=== PATIENT | female | born 1995 | race Hispanic/Latino ===

== ENCOUNTER → 2022-09-22 07:54 | Outpatient (CLI) | payer OTHER, SELFPAY ==
--- NOTE | 2022-09-22 07:57 | DI.ECHO.S_ITS ---
[facility] +---------+ : : [address] : : : : [id number] : : : : Phone: [phone]---------+ Echocardiogram Report + + :Name: STACY MELENDEZ Study Date: 09/22/2022 Height: 60 in : :[facility] ReadingLocation: Weight: 137 lb : : Gender: Female BSA: 1.6 m2 : :: 1995 Age: 26 yrs BP: 120/82 mmHg: :Reason For Study: Syncope and collapse : :Ordering Physician: Melchor Wills : :Krzysztof CHAN Performed By: Meredith Ford : :Referring: Melchor Wills MD : + + Interpretation Summary 1) Normal left ventricular thickness, size, wall motion, and systolic function (EF 60-65%). 2) Normal right ventricular size and function. 3) No significant valvular abnormalities. 4) No prior Echo available for comparison. Procedure: A two-dimensional transthoracic echocardiogram with color flow and Doppler was performed. The patient was in sinus rhythm with heart rates between 69-78 bpm during the exam. Left Ventricle: The left ventricle is normal in size and wall thickness. The ejection fraction is estimated to be 60-65%. Left ventricular systolic function appears normal without focal wall motion abnormalities. Diastolic parameters suggest probable normal left ventricular diastolic function and normal filling pressures. Right Ventricle: The right ventricle is normal in size and function. Atria: The left atrial size is normal. Right atrial size is normal. There is no Doppler evidence for an interatrial shunt. Mitral Valve: The mitral valve is normal in structure and function. There is no mitral regurgitation noted. Aortic Valve: The aortic valve is normal in structure and function. There is no aortic valve stenosis. No aortic regurgitation is present. Tricuspid Valve: The tricuspid valve is normal in structure and function. There is a trace or physiologic amount of tricuspid regurgitation. Pulmonary artery pressures cannot be estimated because of the lack of a measurable TR jet velocity. Pulmonic Valve: The pulmonic valve leaflets are thin and pliable; valve motion is normal. There is a trace or physiologic amount of pulmonic regurgitation. Great Vessels: The aortic root is not well visualized but is probably normal size. The dimensions of the ascending aorta are normal. The IVC is of normal diameter and collapses greater than 50% with a sniff. This suggests a low right atrial pressure of 3 mm Hg. Pericardium/ Pleura There is no pericardial effusion. There is no pleural effusion. MMode/2D Measurements & Calculations LVIDd: 3.9 cm asc Aorta Diam: 2.5 cm LVIDs: 2.4 cm FS: 37.5 % EPSS: 0.28 cm IVSd: 0.44 cm LVPWd: 0.53 cm LV cuello. diameter/BSA (cm/m^2): 2.5 LV sys. diameter/BSA (cm/m^2): 1.5 LA A2 area: 14.2 cm2 RA long axis: 3.9 cm LA A4 area: 13.1 cm2 RA area: 10.4 cm2 LA length (vol): 4.3 cm RA vol: 23.5 ml LA vol: 37.1 ml RA : 14.8 ml/m2 LA vol index: 23.3 ml/m2 RVD1 (basal): 3.5 cm TAPSE: 2.2 cm Doppler Measurements & Calculations Ao V2 max: 115.5 cm/sec LVOT Max Tomás: 93.3 cm/sec Ao V2 mean: 81.1 cm/sec LV V1 max P.5 mmHg Ao max P.3 mmHg LV V1 VTI: 18.6 cm Ao mean P.0 mmHg sev ratio: 0.80 Ao V2 VTI: 23.2 cm MV E max tomás: 82.8 cm/sec TR max tomás: 146.3 cm/sec MV A max tomás: 63.4 cm/sec TR max P.6 mmHg MV E/A: 1.3 PA V2 max: 70.5 cm/sec Med Peak E' Tomás: 9.4 cm/sec PA V2 mean: 51.9 cm/sec E/E' med: 8.8 PA mean P.2 mmHg Lat Peak E' Tomás: 12.6 cm/sec E/E' lat: 6.6 E/e' average: 7.7 MV dec time: 0.18 sec MV V2 mean: 57.0 cm/sec MV mean P.6 mmHg MV V2 VTI: 25.0 cm Reading Physician:10:12 AM
== END ==
PROVIDERS: Referring Provider Family Medicine; Visit Provider Family Medicine
DX: R55 Syncope and collapse (principal)
CPT/HCPCS: 93306

== ENCOUNTER → 2023-10-19 08:54 | Outpatient (CLI) | payer OTHER, SELFPAY ==
[2023-10-19 10:09] LABS: Add Manual Diff / Slide Review NO; Basophils Absolute Auto 100 /uL (0-100); Basophils Percent Auto 0.7 % (0-2); Eosinophils Absolute Auto 400 /uL (0-450); Eosinophils Percent Auto 4.4 % (2-4); Hemoglobin 13.6 g/dL (12.0-16.0); Lymphocytes Absolute Auto 2100 /uL (1100-4500); Lymphocytes Percent Auto 22.7 % (25-40); Mean Corpuscular HGB Conc 34.1 % (30-36); Mean Corpuscular Hemoglobin 29.2 PG (26-34); Mean Corpuscular Volume 85.6 fL (80-100); Monocytes Absolute Auto 500 /uL (0-900); Monocytes Percent Auto 5.3 % (3-14); Neutrophils Absolute Auto 6100 /uL (1500-7000); Neutrophils Percent Auto 66.9 % (50-75); Platelet Count 327 X10^3/uL (150-400); Red Blood Cell Count 4.68 X10^6/uL (4.0-5.2); Red Cell Distribution Width 14.4 % (11.6-14.8); White Blood Cell Count 9.1 X10^3/uL (4.5-11.0)
[2023-10-19 10:46] LABS: Free T4, Direct Thyroxine 1.18 ng/dL (0.78-2.19)
[2023-10-19 11:00] LABS: Hepatitis B Surface Antigen NEGATIVE s/c (NEGATIVE); Rubella Antibody IgG 27.8 IU/mL (>15); Thyroid Stimulating Hormone 12.6 uIU/mL (0.47-4.68)
[2023-10-19 11:17] LABS: HIV 1 & 2 Ab/Ag 4th Gen Combo NEGATIVE (NEGATIVE); Hep C Virus Ab w/Reflex Quant NEGATIVE s/c (NEGATIVE)
[2023-10-19 11:41] LABS: Urine Chlamydia NOT DETECTED; Urine N gonorrhoeae NOT DETECTED
[2023-10-20 14:19] LABS: Varicella IgG Antibody 287 index (Immune >165)
[2023-10-23 08:53] LABS: RPR Screen Non Reactive (Non Reactive)
== END ==
PROVIDERS: PCP Student in an Organized Health Care Education/Training Program; Referring Provider Family Medicine; Visit Provider Family Medicine
DX: Z34.01 Encounter for supervision of normal first pregnancy, first trimester (principal); E03.9 Hypothyroidism, unspecified
CPT/HCPCS: 36415; 80055; 84439; 84443; 86787; 86803; 86850; 86900; 86901; 87086; 87389; 87491; 87591

== ENCOUNTER → 2023-11-16 16:59 | Outpatient (CLI) | payer OTHER, SELFPAY ==
[2023-11-16 18:05] LABS: Natera Collection Specimen Collected
[2023-11-16 18:48] LABS: Free T4, Direct Thyroxine 1.42 ng/dL (0.78-2.19)
[2023-11-16 19:02] LABS: TSH w/ Reflex to FT4 2.48 uIU/mL (0.47-4.68)
== END ==
PROVIDERS: PCP Student in an Organized Health Care Education/Training Program; Referring Provider Family Medicine; Visit Provider Family Medicine
DX: E03.9 Hypothyroidism, unspecified (principal)
CPT/HCPCS: 84439; 84443

== ENCOUNTER → 2023-12-14 08:36 | Outpatient (CLI) | payer OTHER, SELFPAY ==
[2023-12-14 08:58] LABS: Appearance Urine UA CLEAR; Bilirubin Urine UA NEGATIVE (NEGATIVE); Color Urine UA YELLOW; Glucose Urine UA NEGATIVE (Negative); Ketones Urine UA NEGATIVE (NEGATIVE); Leukocyte Esterase Urine UA NEGATIVE (NEGATIVE); Nitrite Urine UA NEGATIVE (Negative); Occult Blood Urine UA TRACE-INTACT (Negative); Protein Urine UA NEGATIVE (Negative); Urobilinogen Urine UA 0.2 E.U./dL (0.2)
[2023-12-14 09:02] LABS: Bacteria Urine None Seen; RBC Urine 0-1/HPF (0-5/HPF); Squamous Epithelial Cell Urine None Seen (0-5/HPF); Urine Volume 10mL (spun); WBC Urine None Seen (0-5/HPF)
== END ==
PROVIDERS: PCP Student in an Organized Health Care Education/Training Program; Visit Provider Family Medicine
DX: N92.0 Excessive and frequent menstruation with regular cycle (principal); O26.852 Spotting complicating pregnancy, second trimester
CPT/HCPCS: 81001; 87086; 87210

== ENCOUNTER → 2024-01-30 08:47 | Outpatient (CLI) | payer OTHER, SELFPAY ==
--- NOTE | 2024-01-30 08:48 | DI.US.S_ITS ---
PROCEDURE: US OB >= 14 WEEKS FETUS INDICATIONS: anatomy scan OUTSIDE/PRIOR DATING DATA: Last menstrual period (LMP): 08/09/2023. LMP-based estimated date of delivery (OSCAR): 05/15/2024. First dating scan (date and location): 01/30/2024. Estimated date of delivery (OSCAR) from first dating scan: 05/11/2024. The calculations are made using the ultrasound OSCAR of 05/11/2024. TECHNIQUE: Real-time scanning was performed of the fetus, with image documentation and biometric measurements. Endovaginal scanning: Not performed COMPARISON: None. FINDINGS: General: A single living intrauterine gestation is present. Presentation: Transverse. Placenta: Placental position is anterior, without previa. Amniotic fluid index: 14.9 cm, normal range is 5-24 cm. Single deepest vertical pocket is 5.6 cm. heart rate: 157 beats per minute. Maternal cervical canal: 3.1 cm long. Normal lower limit is 2.5 cm. biometrics: Biparietal diameter: 6.2 cm, 25 weeks 0 days Head circumference: 22.9 cm, 24 weeks 6 days Abdominal circumference: 22.1 cm, 26 weeks 4 days Femur length: 4.9 cm, 25 weeks 1 day Clinically estimated gestational age: 24 weeks 6 days Composite gestational age from present scan: 25 weeks 3 days Estimated weight and percentile: 156 g, 82 percentile Anatomic survey: Neuro: Ventricles are non-dilated at less than 10 mm. Cisterna magna is normal at 3-11 mm. Cerebellum is normal in size and morphology. Nuchal skin fold: Grossly normal. Face: Nose and lips, facial profile are normal. Spine: Suboptimally visualized. No evidence for spina bifida. Heart: 4-chambered heart is present. RVOT is not well seen. LVOT is normal in appearance. Diaphragm: Diaphragm is intact. Stomach: Left-sided stomach is present. Kidneys: No hydronephrosis. Normal is less than 5 mm in 2nd trimester, less than 7 mm in 3rd trimester. Cord: 3-vessel cord has orthotopic insertion. Bladder: Normal in size. Extremities: Left upper extremity is suboptimally visualized. Other extremities have a normal appearance. IMPRESSION: 1. Madrigal living intrauterine at 25 weeks 3 days based on today's ultrasound. Fetus is in the 82 percentile for weight. 2. Normal placenta and amniotic fluid. 3. RVOT, spine, and left upper extremity are suboptimally visualized. Otherwise normal anatomic survey. Recommend follow-up OB ultrasound. We strive to produce accurate, complete, and clear reports of imaging services. To assist us in improving patient care, this report was composed using standard report templates and voice recognition software. Therefore, it may contain abnormal punctuation, insertions and/or omissions. Occasional wrong-word or sound-alike substitutions may occur. Though we review the report and make efforts to correct it, we do recommend that the report be read carefully in proper context to recognize any text inaccuracies. Dictated by: Wes Montanez M.D. on 01/30/2024 at 14:46 Approved by: Wes Montanez M.D. on 01/30/2024 at 14:53
== END ==
PROVIDERS: PCP Student in an Organized Health Care Education/Training Program; Referring Provider Family Medicine; Visit Provider Family Medicine
DX: Z34.02 Encounter for supervision of normal first pregnancy, second trimester (principal); Z3A.25 25 weeks gestation of pregnancy
CPT/HCPCS: 76811

== ENCOUNTER → 2024-02-13 10:18 | Outpatient (CLI) | payer OTHER, SELFPAY ==
[2024-02-13 12:11] LABS: Hematocrit 37.5 % (36-46); Hemoglobin 12.9 g/dL (12.0-16.0)
[2024-02-13 12:24] LABS: GTT (PREG) 1 Hour PP 50gm Dose 151 mg/dL (76-139)
[2024-02-13 12:42] LABS: Free T4, Direct Thyroxine 0.99 ng/dL (0.78-2.19)
[2024-02-13 12:57] LABS: Thyroid Stimulating Hormone 2.79 uIU/mL (0.47-4.68)
== END ==
PROVIDERS: PCP Student in an Organized Health Care Education/Training Program; Referring Provider Family Medicine; Visit Provider Family Medicine
DX: O99.280 Endocrine, nutritional and metabolic diseases complicating pregnancy, unspecified trimester (principal); E03.9 Hypothyroidism, unspecified
CPT/HCPCS: 82950; 84439; 84443; 85014; 85018

== ENCOUNTER → 2024-02-22 09:45 | Outpatient (CLI) | payer OTHER, SELFPAY ==
[2024-02-22 12:07] LABS: Glucose 1 Hour Gest 144 mg/dL (76-180)
[2024-02-22 12:11] LABS: Glucose Fasting Gestational 81 mg/dL (76-95)
[2024-02-22 13:13] LABS: Glucose Tol Interp,Gestational INTERPRETATION
[2024-02-22 13:19] LABS: Glucose 2 Hour Gest 120 mg/dL (76-155)
[2024-02-22 14:43] LABS: Glucose 3 Hour Gest 126 mg/dL (76-140)
--- NOTE | 2024-02-22 16:17 | DI.US.S_ITS ---
PROCEDURE: US OB FOLLOW UP INDICATIONS: visualize RVOT, spine, left upper extre seen on anatomy scan OUTSIDE/PRIOR DATING DATA: Last menstrual period (LMP): 08/09/2023. LMP-based estimated date of delivery (OSCAR): 05/15/2023. First dating scan (date and location): Unknown. Estimated date of delivery (OSCAR) from first dating scan: 05/11/2024. The calculations are made using the sonographic OSCAR of 05/11/2024. TECHNIQUE: Real-time scanning was performed of the fetus, with image documentation and biometric measurements. Endovaginal scanning: Not performed COMPARISON: None. FINDINGS: General: A single living intrauterine gestation is present. Presentation: Vertex. Placenta: Placental position is anterior , without previa. Amniotic fluid index: 18.9 cm, normal range is 5-24 cm. Single deepest vertical pocket is 5.8 cm. heart rate: 149 beats per minute. Maternal cervical canal: 5.1 cm long. Normal lower limit is 2.5 cm. biometrics: Composite gestational age from present scan: 28 weeks 5 days Anatomic survey: Spine: No evidence for spina bifida. Heart: L flow tracts are suboptimally visualized but appear within normal limits given window. Cord: 3 vessel cord has orthotopic insertion. Bladder: Normal in size. IMPRESSION: Single living intrauterine at 28 weeks 5 days, OSCAR of 05/11/2024. Suboptimal heart windows. Outflow tracts are within normal limits given these limitations. Normal spine. We strive to produce accurate, complete, and clear reports of imaging services. To assist us in improving patient care, this report was composed using standard report templates and voice recognition software. Therefore, it may contain abnormal punctuation, insertions and/or omissions. Occasional wrong-word or sound-alike substitutions may occur. Though we review the report and make efforts to correct it, we do recommend that the report be read carefully in proper context to recognize any text inaccuracies. Dictated by: Clarke Pedroza M.D. on 02/25/2024 at 16:50 Approved by: Clarke Pedroza M.D. on 02/25/2024 at 16:54
== END ==
PROVIDERS: PCP Student in an Organized Health Care Education/Training Program; Referring Provider Family Medicine; Visit Provider Family Medicine
DX: O26.853 Spotting complicating pregnancy, third trimester (principal); O99.810 Abnormal glucose complicating pregnancy; Z3A.28 28 weeks gestation of pregnancy
CPT/HCPCS: 36415; 76816; 82951; 82952

== ENCOUNTER → 2024-04-18 08:27 | Outpatient (CLI) | payer OTHER, SELFPAY ==
[2024-04-18 09:50] LABS: Add Manual Diff / Slide Review NO; Basophils Absolute Auto 0 /uL (0-100); Basophils Percent Auto 0.4 % (0-2); Eosinophils Absolute Auto 300 /uL (0-450); Eosinophils Percent Auto 2.8 % (2-4); Hematocrit 38.2 % (36-46); Hemoglobin 13.1 g/dL (12.0-16.0); Lymphocytes Absolute Auto 1500 /uL (1100-4500); Lymphocytes Percent Auto 15.6 % (25-40); Mean Corpuscular HGB Conc 34.4 % (30-36); Mean Corpuscular Hemoglobin 28.8 PG (26-34); Mean Corpuscular Volume 83.8 fL (80-100); Monocytes Absolute Auto 500 /uL (0-900); Monocytes Percent Auto 5.2 % (3-14); Neutrophils Absolute Auto 7600 /uL (1500-7000); Platelet Count 296 X10^3/uL (150-400); Red Blood Cell Count 4.56 X10^6/uL (4.0-5.2); Red Cell Distribution Width 15.2 % (11.6-14.8); White Blood Cell Count 9.9 X10^3/uL (4.5-11.0)
[2024-04-18 10:22] LABS: Free T4, Direct Thyroxine 1.04 ng/dL (0.78-2.19)
[2024-04-18 10:36] LABS: Thyroid Stimulating Hormone 1.93 uIU/mL (0.47-4.68)
[2024-04-19 08:00] LABS: Strep Grp B PCR NEG for Grp B Strep
== END ==
PROVIDERS: PCP Student in an Organized Health Care Education/Training Program; Referring Provider Family Medicine; Visit Provider Family Medicine
DX: O99.280 Endocrine, nutritional and metabolic diseases complicating pregnancy, unspecified trimester (principal); E03.9 Hypothyroidism, unspecified; Z3A.36 36 weeks gestation of pregnancy
CPT/HCPCS: 36415; 84439; 84443; 85025; 87653

== ENCOUNTER → 2024-05-01 06:25 | Outpatient (CLI) | payer OTHER, SELFPAY ==
--- NOTE | 2024-05-01 06:26 | DI.US.S_ITS ---
PROCEDURE: US OB FOLLOW UP INDICATIONS: GROWTH FOR EXC WT GAIN,HYPOTHYROID IN OUTSIDE/PRIOR DATING DATA: Last menstrual period (LMP): 05/10/2023. LMP-based estimated date of delivery (OSCAR): 05/15/2024. First dating scan (date and location): 10/19/2023. Estimated date of delivery (OSCAR) from first dating scan: 05/11/2024. The calculations are made using the clinical OSCAR of 05/15/2024. TECHNIQUE: Real-time scanning was performed of the fetus, with image documentation and biometric measurements. Endovaginal scanning: Not performed COMPARISON: [facility], OB FOLLOW UP, 02/22/2024, 16:40. FINDINGS: General: A single living intrauterine gestation is present. Presentation: Anterior. Placenta: Placental position is anterior , without previa. Amniotic fluid index: 14.7 cm, normal range is 5-24 cm. Single deepest vertical pocket is 5.6 cm. heart rate: 139 beats per minute. Maternal cervical canal: 3.4 cm long. Normal lower limit is 2.5 cm. biometrics: Biparietal diameter: 9.3 centimeters, 37 weeks 6 days Head circumference: 33.2 centimeters, 37 weeks 6 days Abdominal circumference: 34.6 centimeters, 38 weeks 3 days Femur length: 7.2 centimeters, 37 weeks 0 days Clinically estimated gestational age: 38 weeks 0 days Composite gestational age from present scan: 37 weeks 6 days Estimated weight and percentile: 3372 grams, 63rd percentile Other: Not applicable. IMPRESSION: Single living intrauterine at 38 weeks 0 days, OSCAR 05/14/2024. Estimated weight of 3372 grams, 63rd percentile. We strive to produce accurate, complete, and clear reports of imaging services. To assist us in improving patient care, this report was composed using standard report templates and voice recognition software. Therefore, it may contain abnormal punctuation, insertions and/or omissions. Occasional wrong-word or sound-alike substitutions may occur. Though we review the report and make efforts to correct it, we do recommend that the report be read carefully in proper context to recognize any text inaccuracies. Dictated by: Clarke Pedroza M.D. on 05/02/2024 at 10:55 Approved by: Clarke Pedroza M.D. on 05/02/2024 at 11:03
== END ==
PROVIDERS: PCP Student in an Organized Health Care Education/Training Program; Referring Provider Family Medicine; Visit Provider Family Medicine
DX: O26.03 Excessive weight gain in pregnancy, third trimester (principal); O99.280 Endocrine, nutritional and metabolic diseases complicating pregnancy, unspecified trimester; E03.9 Hypothyroidism, unspecified; Z3A.38 38 weeks gestation of pregnancy
CPT/HCPCS: 76816

== ENCOUNTER 2024-05-18 11:11 | Observation (INO) | payer OTHER, SELFPAY | END 2024-05-18 11:50 | disposition home or self-care (01) | PROVIDERS: Admitting Provider Family Medicine; PCP Student in an Organized Health Care Education/Training Program; Referring Provider Obstetrics & Gynecology; Visit Provider Obstetrics & Gynecology | DX: O47.1 False labor at or after 37 completed weeks of gestation (principal); Z3A.40 40 weeks gestation of pregnancy | CPT/HCPCS: 59025; G0378; G0379 ==

== ENCOUNTER 2024-05-18 12:46 | Inpatient (IN) | payer OTHER, SELFPAY ==
--- NOTE | 2024-05-18 13:20 | PM.OBHP.IH.1 ---
OB HPI Date/Time Date of admission: 05/18/24 Date Patient Seen: 05/18/24 Time Patient Seen: 18:00 History of Present Condition Chief complaint: Labor OSCAR Calculator Estimated Delivery Date Method Current WG Current Estimate 05/15/24 LMP (Certain) 40w 3d Other Estimates 05/15/24 Ultrasound #1 40w 3d Estimated Gestational Age (weeks): 40+3 : 1 Para: 0 Narrative: 28-year-old at GA 40+3 weeks presenting for contractions since 0200, became more regular around 0600 and intense at 1000. Endorses normal movement. Denies vaginal bleeding or leakage of fluid. notable for hypothyroid on levothyroxine. care: good care Dating criteria OB: LMP confirmed by 1st trimester US Ultrasounds: normal 1st trimester US and normal mid trimester US Obstetrical complications: none Medical complications OB: other (hypothyroidism on levothyroxine 112mcg daily) Preadmission Labs Last OB Lab Results: Blood Type A Positive 05/18/24 13:30 Antibody Screen Negative 05/18/24 13:30 Hct 44.4 % (36-46) 05/18/24 13:30 Hgb 15.1 g/dL (12.0-16.0) 05/18/24 13:30 Hep Bs Antigen Negative s/c (NEGATIVE) 10/19/23 09:16 Hepatitis C Antibody Negative s/c (NEGATIVE) 10/19/23 09:16 Rubella Antibody 27.8 IU/mL (>15) 10/19/23 09:16 VZV IgG Antibody 287 index (Immune >165) 10/19/23 09:16 Glucose 1 Hr 50 gm 151 mg/dL (76-139) H 02/13/24 11:34 Group B Strep (PCR) Neg for grp b strep 04/18/24 08:41 Glucose Tolerance Testin hr (normal) -: Chlamydia screen: negative and Gonorrhea screen: negative Genetic Screens: Cell-free DNA: Normal Evaluation Evaluation Baseline heart rate: 135 Variability: Moderate (11-25) monitor accelerations: Present Monitor Decelerations: Absent Contraction Frequency (minutes): 4 Category of Tracing: Reactive Status: Category l Dilation (cm): 6.5 Effacement (%): 100 station: -2 Position of cervix: anterior Consistency: soft [facility] Medical History (Updated 03/07/24 @ 13:04 by Lloyd Gorman MD) Allergies Irregular menstrual cycle (~2020) Abnormal Pap smear of cervix (~2018) Graves disease (~2020) Hypothyroidism (~2021) Hyperthyroidism (~2020) Vaccine reaction Surgical History (Updated 10/30/23 @ 19:14 by Sakshi Duncan) Anesthesia [place] teeth extracted History of thyroidectomy (~11/2021) Family History (Updated 10/30/23 @ 19:15 by Sakshi Duncan) Mother Ovarian cancer Father Family estrangement Grandmother Brain tumor Hyperlipidemia Hypertension Stroke Aunt Ovarian cancer Aunt Bone cancer Social History marital status: number of children: 0 household members: spouse lives independently: Yes caregiver/support person: No housing: apartment pets and animals: Yes (dogs) education level: high school occupational status: employed current occupational exposures/hazards: No special charbel needs: No travel history: recent seatbelt use: always water heater temp set < 120 deg: Yes working smoke detector in home: Yes fire extinguisher in home: Yes carbon monox detector in home: Yes firearms in home: Yes firearms unloaded and locked: Yes do you feel safe at home: Yes Smoking Status: Never smoker second hand exposure: No alcohol intake: former substance use type: does not use during the past year weight has: decreased > 10 lbs well-balanced diet: daily or most days daily servings fruits/ve or more times/day caffeine: Yes (mostly tea and soft drinks) Type(s) of exercise: yoga frequency: 3-4 times per week Meds Home Medications and Allergies Home Medications Medication Instructions Recorded Confirmed Type levothyroxine 112 mcg tablet 112 mcg PO DAILY 10/03/23 05/18/24 History omega 8-tsq-zeq-fish oil 60 mg-90 1 cap PO DAILY 10/03/23 05/18/24 History mg-500 mg capsule (Fish Oil) vitamin-ferrous sulfate See Rx Instructions .Route .COMPLEX 10/03/23 05/18/24 History 27 mg iron-folic acid 0.8 mg tablet pyridoxine (vitamin B6) 50 mg 25 mg (1/2 x 50 mg) PO TID #90 tabs 10/19/23 05/18/24 Rx tablet Disabled Parking See Rx Instructions .Route 03/07/24 05/18/24 Rx .COMPLEX #365 days Allergies Allergy/AdvReac Type Severity Reaction Status Date / Time hazelnut Allergy Intermediate Swelling Verified 05/18/24 13:22 of Lip/Tongue/Throat COVID-19 (SARS-CoV-2) AdvReac Severe autoimmune Verified 05/18/24 13:22 vaccine, meli response OB Exam Narrative Exam Narrative: General: Well-nourished, no distress HEENT: NC/AT, EOMI, moist mucous membranes CV: RRR, normal S1 S2, no m/g/r Resp: CTAB Abd: Gravid, soft, NTND, +BS Ext: Full ROM, no edema Skin: No rash or lesions Neuro: A&O x3, normal tone, no focal deficits Objective Labs 05/18/24 13:30 Assessment and Plan Assessment and Plan Assessment and Plan narrative: 28-year-old at GA 40+3 weeks presenting for labor. notable for hypothyroidism on levothyroxine. . -admit to L&D -GBS negative, ppx not indicated -pain control prn if desired by patient -PPH risk low -VTE risk low, SCDs with epidural -anticipate vaginal delivery Time-Based Coding :: 30 minutes spent with patient and on the chart (including review of chart, obtaining history, exam, reviewing outside data, placing orders, documenting exam and treatment plan, and counseling patient) on 05/18/2024.
[2024-05-18 13:30] VITALS: BP 127/78
[2024-05-18 13:44] LABS: Add Manual Diff / Slide Review NO; Basophils Absolute Auto 0 /uL (0-100); Basophils Percent Auto 0.3 % (0-2); Eosinophils Absolute Auto 100 /uL (0-450); Eosinophils Percent Auto 0.8 % (2-4); Hematocrit 44.4 % (36-46); Hemoglobin 15.1 g/dL (12.0-16.0); Lymphocytes Absolute Auto 1400 /uL (1100-4500); Lymphocytes Percent Auto 11.2 % (25-40); Mean Corpuscular Hemoglobin 28.8 PG (26-34); Mean Corpuscular Volume 84.7 fL (80-100); Monocytes Absolute Auto 700 /uL (0-900); Monocytes Percent Auto 5.4 % (3-14); Neutrophils Absolute Auto 10500 /uL (1500-7000); Neutrophils Percent Auto 82.3 % (50-75); Platelet Count 316 X10^3/uL (150-400); Red Blood Cell Count 5.24 X10^6/uL (4.0-5.2); Red Cell Distribution Width 15.6 % (11.6-14.8); White Blood Cell Count 12.8 X10^3/uL (4.5-11.0)
[2024-05-18] MEDS: LACTATED RINGERS 1,000 ML 100 ML IV (14:25)
--- NOTE | 2024-05-18 15:26 | P.PCN_ITS ---
[facility] <Ana Ovalle CRNA - Last Filed: 05/18/24 19:14> Pre-procedure Procedure: Continuous Lumbar Epidural for L&D Attending OB provider: Lloyd Gorman PMH/ROS narrative: 28 y/o with PMH of hypothyroidism s/p thyroidectomy presents in spontaneous active labor and requests LEONIDES for labor pain. PSH/Anesthesia history narrative: Thyroidectomy w/o anesthetic complications. Exam narrative: See pre-anesthesia evaluation form. ASA Class: II Labs: Hct 44.4 % (36-46) 05/18/24 13:30 Plt Count 316 X10^3/uL (150-400) 05/18/24 13:30 Medications: Current Medications Generic Name Dose Route Start Last Admin Trade Name Freq PRN Reason Stop Dose Admin Calcium Carbonate 1,000 mg 05/18/24 13:16 Calcium Carbonate 500 Mg Tab PO Q2HR PRN Dyspepsia Carboprost Tromethamine 250 mcg 05/18/24 13:16 Carboprost 250 Mcg/Ml Ampul IM Q90M PRN Bleeding Diphenhydramine HCl 25 mg 05/18/24 15:22 Diphenhydramine 50 Mg/Ml Vial IV Q10M PRN Pruritis Diphenhydramine HCl 25 mg 05/18/24 15:24 Diphenhydramine 50 Mg/Ml Vial IV 05/19/24 15:24 Q3HR PRN PRURITUS Fentanyl 50 mcg 05/18/24 13:16 Fentanyl 100 Mcg/2 Ml Inj IV Q1H PRN Pain, Moderate (4-6) Oxytocin/Lactated Ringer's 30 unit in 500 mls @ 200 mls/hr 05/18/24 13:16 Oxytocin Premix IV CONT PRN Bleeding Protocol Tranexamic Acid 1,000 mg/ 100 mls @ 600 mls/hr 05/18/24 13:16 Sodium Chloride IV NOW PRN Bleeding Oxytocin/Lactated Ringer's 30 unit in 500 mls @ 2 mls/hr 05/18/24 13:30 Oxytocin Premix IV TITRATE MAGO Protocol 2 MILLIUNIT/MIN Lactated Ringer's 1,000 mls @ 100 mls/hr 05/18/24 13:30 Lactated Ringers IV 05/18/24 23:29 CONT MAGO FENT 2MCG/ML BUPIV 0.125% EPI 200 mcg in 100 mls @ 8 mls/hr 05/18/24 15:06 Fentanyl/Bupiv/Ns 2mcg/Ml - 0.125% EPIDURAL CONT MAGO Lidocaine HCl 20 ml 05/18/24 13:16 Lidocaine 1% 20 Ml INJ INTRA-OP PRN Post Delivery Methylergonovine Maleate 0.2 mg 05/18/24 13:16 Methylergonovine 0.2 Mg Tablet PO Q6HR PRN Heavy Bleeding Methylergonovine Maleate 0.2 mg 05/18/24 13:16 Methylergonovine 0.2 Mg/Ml Vial IM NOW PRN Bleeding Mineral Oil 30 ml 05/18/24 13:16 Mineral Oil 30 Ml Udc TOP PRN PRN Version Misoprostol 800 mcg 05/18/24 13:16 Misoprostol 200 Mcg Tablet SD NOW PRN Bleeding Misoprostol 400 mcg 05/18/24 13:16 Misoprostol 200 Mcg Tablet SL NOW PRN Bleeding Naloxone HCl 0.2 mg 05/18/24 13:16 Naloxone 0.4 Mg/Ml Vial IV Q2MIN PRN Opiate Reversal Naloxone HCl 0.1 mg 05/18/24 15:24 Naloxone 0.4 Mg/Ml Vial IV 05/18/24 15:25 NOW ONE Ondansetron HCl 4 mg 05/18/24 13:16 Ondansetron 4 Mg/2 Ml Inj IV Q4HR PRN Nausea And Vomiting Ondansetron HCl 4 mg 05/18/24 15:24 Ondansetron 4 Mg/2 Ml Inj IV 05/19/24 15:25 Q6HR PRN Nausea Oxytocin 10 unit 05/18/24 13:16 Oxytocin 10 Unit/Ml Vial IM NOW PRN Bleeding Allergies: Allergies Allergy/AdvReac Type Severity Reaction Status Date / Time hazelnut Allergy Intermediate Swelling Verified 05/18/24 13:22 of Lip/Tongue/Throat COVID-19 (SARS-CoV-2) AdvReac Severe autoimmune Verified 05/18/24 13:22 vaccine, meli response Procedure Insertion date: 05/18/24 Insertion time: 15:03 Prep/Local: 1% lidocaine (3mL to L4/5 interspace, repeated at L3/4 interspace after inability to achieve DANIEL at L4/5 space) Interspace: L3/4 Patient position: sitting Needle: 18 gauge Core Informaticstead (27g Pencan through Hustead with 1mL 0.25% MPF bupivacaine placed intrathecal) Loss of resistance with: saline DANIEL at (cm): 5 ((5.5)) Catheter placed at SKIN (cm): 12 Catheter in SPACE (cm): 7 ((6.5)) Insertion: No CSF, No Blood, No Paresthesia with insertion, No Paresthesia with injection and No Test dose reaction Initial Medications TEST DOSE time: 15:05 TEST DOSE: 1.5% lidocaine with epinephrine 1:200k (mL): 3 Infusion INFUSION: 0.125% bupivacaine and with fentanyl 2 mcg/mL Initial rate (mL/hr): 8 Post-procedure Anesthesia date START: 05/18/24 Anesthesia time START: 14:55 <Neela Figueroa, DO - Last Filed: 05/19/24 11:40> Infusion Subsequent interventions: 05/19 10:15 Pt comfortable with epidural, reports only pressure with contractions, moves BLE but heavy. C/s called for failure to progress. Epidural infusion discontinued. KR Post-procedure Anesthesia date END: 05/19/24 Anesthesia time END: 10:24 Post-procedure Anesthesia Assessment: Yes CV function: HR/BP stable, Yes Resp function: RR/sat/airway adequate, Yes Post-op hydration adequate, Yes Pain control adequate, Yes Nausea & vomiting absent, Yes Temperature > 36 C, Yes Mental status appropriate and No Anesthesia complications
[2024-05-18] MEDS: FENT 2MCG/ML BUPIV 0.125% EPI 200 MCG/100 ML PLAST..BAG 8 MCG EPIDURAL (23:35)
--- NOTE | 2024-05-19 02:30 | PM.OBPNLAB ---
Date/Time Date Patient Seen: 05/19/24 Time Patient Seen: 02:00 Pain Control Pain control: epidural Comments: Called to bedside for evaluation due to category 2 strip recurrent variables and possibly decelerations. Patient comfortable with epidural. Pelvic Exam Dilation (cm): 8 Effacement (%): 100 station: -2 Amniotic membrane status: Ruptured Contractions Date/Time contractions began: 05/18/2024 at 0600 Contractions on admission: regular Monitor mode: External Contraction frequency (min): 3 Contraction duration (min): 1 Contraction pattern: Regular Contraction intensity: Moderate Status status: Category ll Heart Rate Baseline: 150 Monitor Accelerations: Absent Monitor Decelerations: Variable Monitor Variability: Moderate Comments: Intermittent monitoring variables with intermittent early decelerations and few borderline late decelerations Assessment and Plan Assessment: active labor Comments: MWB: -Comfortable w/epidural, no concerns. FWB: -Cat 2 strip w/sleep cycles and intermittent moderate variables, some early decels and few borderline shallow late decels. Labor: -S/p AROM w/mec fluid 05/18 at 1800. -Slow progression of labor from 7 to 8cm over interval 8 hours, suspect inadequate contraction strength. -IUPC placed, start pitocin and titrate to adequate MVU. -Discussed possibility of indication for delivery if labor dystocia continues or if baby does not tolerate augmentation.
[2024-05-19] MEDS: OXYTOCIN PREMIX 30 UNIT/500 ML PLAST..BAG IV (03:06)
--- NOTE | 2024-05-19 09:23 | PM.OBPNLAB ---
Date/Time Date Patient Seen: 05/19/24 Time Patient Seen: 07:30 Pain Control Pain control: epidural Pelvic Exam Dilation (cm): 10 Effacement (%): 100 station: 0 Amniotic membrane status: Ruptured Contractions Contractions on admission: regular Monitor mode: External Pitocin rate (mU/min): 3 Contraction frequency (min): 3 Contraction duration (min): 1 Contraction pattern: Regular Contraction intensity: Moderate Status status: Category ll Heart Rate Baseline: 120 Monitor Accelerations: Present Monitor Decelerations: Early, Late and Variable Monitor Variability: Moderate Comments: Moderate variables with intermittent shallow early and late decelerations, 1-2 min decels with pushing that recover well within 60-90 sec Assessment and Plan Assessment: active labor Plan: continuous present management Comments: MWB: -Comfortable w/epidural, no concerns. FWB: -Cat 2 strip w/intermittent moderate/severe variables while pushing, slow but adequate recovery of FHR after contraction. Labor: -S/p AROM w/mec fluid 05/18 at 1800. -Slow progression of labor to complete dilation over subsequent 13 hours. - head at 0 station and tolerated practice push. -Dr. Ceballos consulted and potentially amenable to forceps assisted delivery if makes sufficient progress. -Discussed possibility of delivery if head unable to descend sufficiently to provide option for operative vaginal delivery.
--- NOTE | 2024-05-19 10:08 | PM.OBPNLAB ---
Date/Time Date Patient Seen: 05/19/24 Time Patient Seen: 09:45 Pain Control Pain control: epidural Comments: Pain well controlled. Feels tired and unable to push much longer. Pelvic Exam Dilation (cm): 10 Effacement (%): 100 station: +1 Amniotic membrane status: Ruptured Contractions Contractions on admission: regular Monitor mode: External Pitocin rate (mU/min): 3 Contraction frequency (min): 3 Contraction duration (min): 1 Contraction pattern: Regular Contraction intensity: Moderate Status status: Category ll Heart Rate Baseline: 150 Monitor Accelerations: Absent Monitor Decelerations: Early, Late and Variable Monitor Variability: Moderate Comments: Recurrent moderate variables with intermittent late decelerations, 1-2 min decels with pushing that recover well within 60-90 sec Assessment and Plan Assessment: active labor Plan: continuous present management Comments: MWB: -Comfortable w/epidural. Exhausted from pushing. FWB: -Cat 2 strip w/intermittent moderate variables while pushing, slow but adequate recovery of FHR after pushing/contraction. Labor: -S/p AROM w/mec fluid 05/18 at 1800. -Slow progression of labor to complete dilation over subsequent 13 hours. - head at +1 station after 2.5 hours pushing. -Dr. Ceballos consulted but insufficient pelvic space for attempted forceps delivery. -Discussed with patient, recommend delivery at this time due to 2nd stage arrest maternal exhaustion. Consent form for section was reviewed with the patient. Risk of reaction to medication or anesthesia, risk of bleeding enough to require blood transfusion which she is agreeable to, risk of infection, risk of damage to internal structures such as bowel, bladder, ureters that could require additional surgery to repair. Consent form signed and questions answered.
--- NOTE | 2024-05-19 10:18 | SUR.OPER ---
Supine on Padded OR bed, head on pillow, safety belt at thigh, arms secured on padded arm boards at <90 degrees abduction. Bump under right buttock. Legs uncrossed with pillow under knees, gel pad to heels, tape over blanket to lower legs.
[2024-05-19] MEDS: CITRIC ACID/SODIUM CITRATE 15 ML SOLUTION 30 ML PO (10:22)
[2024-05-19] MEDS: CEFAZOLIN 2 GM/100 ML PREMIX 100 ML IV (10:31)
[2024-05-19] MEDS: AZITHROMYCIN 500 MG in DEXTROSE 5% IN WATER 250 ML 250 MG IV (10:39)
--- NOTE | 2024-05-19 10:54 | SUR.OPER ---
PLACENTA AND CORD BLOOD LABELLED AND SENT TO L&D
--- NOTE | 2024-05-19 11:13 | SUR.OPER ---
Time of : 1059. Placenta and cord blood sent with L&D nurse Minesh Hinkle RN.
--- NOTE | 2024-05-19 12:10 | SUR.OPER ---
bloody tinted urine scant drainage
--- NOTE | 2024-05-19 12:23 | P.OP_ITS ---
Operative Date/Time/Diagnoses Date of procedure: 05/19/24 Pre-op diagnosis: Second stage rest, maternal exhaustion Post-op diagnosis: same Procedure & Clinicians Procedure: Primary low-transverse section Same procedure as scheduled: Yes Indications: 2nd stage arrest of labor, maternal exhaustion Surgeon: Lloyd Gorman Click Yes if Unassisted: No Marine Diesel Mechanic: Antonia Mayo Reason for Marine Diesel Mechanic: Marine Diesel Mechanic required for the safe, effective, and timely completion of this surgery. The expanded function dental assistant was necessary to retract upon entry into the abdomen and uterus. Assisted with delivery of the infant with fundal pressure. Assisted w ith closure with retraction, clipping of suture, and closure of the contralateral fascia. Anesthesia Type: Epidural Operative Notes Closure Type: primary Specimen(s): cord blood Intraoperative meds administered: Methergine and Pitocin Applied: Catheter Estimated Blood Loss (mL): 500 Blood products transfused: none Procedure in detail: Patient was taken to the operating room where epidural anesthesia was found to be adequate. She was then prepared and draped in the usual sterile fashion in the dorsal supine position with a leftward tilt. A Pfannenstiel incision was then made with a scalpel and carried through to the underlying layer of fascia sharply. The fascia was nicked in the midline, and the incision extended laterally with Xie scissors. The superior aspect of the fascial incision was then grasped with Carly clamps, elevated, and the underlying rectus muscles dissected off bluntly. Attention was then turned to the inferior aspect of the incision which, in similar fashion, was grasped, tented up with Carly clamps, and rectus muscles dissected off bluntly. The rectus muscles were then in the midline, and peritoneum identified, tented up, and entered bluntly. The peritoneal opening was then extended superiorly and inferiorly with good visualization of the bladder. The bladder blade was then inserted and the vesicouterine peritoneum identified, grasped with pickups, and entered sharply with Metzenbaum scissors. This incision was then extended laterally and the bladder flap created digitally. The bladder blade was then reinserted and the lower uterine segment incised in a transverse fashion with the scalpel. The uterine incision was then extended laterally with blunt traction. Upon entering the amniotic sac there was moderate amount of meconium-stained amniotic fluid. The bladder blade was removed and the infant head delivered atraumatically. The nose and mouth were suctioned with bulb suction, and the remainder of the body delivered without difficulty. The cord was clamped and cut, and the was handed off to the waiting care team. Cord blood was collected and sent. The placenta was then removed by manual expression; the uterus was exteriorized and cleared of all clots and debris. The uterine incision was repaired with 0 Vicryl in a running, locked fashion. A second layer of same suture was used to obtain excellent hemostasis. Tubes and ovaries were examined and were found to be normal, and the uterus returned to the abdomen. The gutters were cleared of all clots, and the rectus muscles were reapproximated with 2-0 Vicryl. The fascia was reapproximated with 0 Vicryl in a running fashion. The subcutaneous layer was copiously irrigated with warm normal saline. The subcutaneous fat was reapproximated with 3-0 Vicryl. The skin was closed with 3-0 Monocryl. Steri-Strips per applied to the incision and an Aquacel dressing was placed. The uterus was expressed of a small amount of old blood. Sponge, lap, and needle counts were correct x2. The patient tolerated the procedure well and was taken to the recovery room in stable condition. Complications: none Fosters Baby 1: Gender: Female Presentation: vertex Position: Left Occiput Anterior Placental Delivery Description: Spontaneous Cord Vessel Description: 3 Vessels score (1 min): 8 score (5 min): 9 weight: 6 lb 12.397 oz Post-operative Condition: stable Disposition: PACU Aftercare: routine postop
[2024-05-19 12:28] VITALS: BP 135/89; PULSE 107; RESP 16; TEMP 36; O2SAT 97
[2024-05-19 12:33] VITALS: BP 126/77; PULSE 98; RESP 17; O2SAT 97
[2024-05-19 12:39] VITALS: BP 130/78; PULSE 102; RESP 21; TEMP 36.6; O2SAT 97
[2024-05-19 12:46] VITALS: BP 117/80; PULSE 72; RESP 15; O2SAT 98
[2024-05-19] MEDS: KETOROLAC 30 MG/ML VIAL IV (17:05)
[2024-05-19] MEDS: ACETAMINOPHEN 325 MG TABLET 650 MG PO ×2 (17:05→23:25)
[2024-05-20] MEDS: ACETAMINOPHEN 325 MG TABLET 650 MG PO ×2 (05:38→13:36)
[2024-05-20] MEDS: LEVOTHYROXINE 112 MCG TABLET PO (05:53)
[2024-05-20] MEDS: LANOLIN OINT 7 GM 1 APPLIC TOP (09:31)
[2024-05-20] MEDS: DOCUSATE 100 MG CAPSULE PO (09:32)
[2024-05-20] MEDS: IBUPROFEN 600 MG TABLET PO ×2 (09:32→15:41)
--- NOTE | 2024-05-20 12:42 | PM.OBPN.1 ---
Subjective - OB Subjective Patient comments: no complaints, pain well controlled, tolerating diet and flatus present baby status: doing well and nursing well [place] feeding status: exclusively breast feeding Date Patient Seen: 05/20/24 Time Patient Seen: 13:00 Interval history: Recovered well from delivery, ambulating without difficulty. Ylix-me-[id number] soreness when moving from seated to standing or vice versa. Managing pain with Tylenol and ibuprofen, gets significant nausea from opiate medications so avoiding use. Exam Vital Signs (past 8 hours): Oxygen Delivery Method Room Air Narrative Exam Narrative: General: Well-appearing, well-nourished, no distress HEENT: Moist mucous membranes, no pallor CV: Regular rate and rhythm, no murmur auscultated Resp: CTAB, comfortable work of breathing Abdomen: Soft, bowel sounds present, fundus firm below umbilicus with appropriate tenderness, incision [clean dry intact/oozing/open] Extremities: No edema, no calf tenderness or evidence of DVT Objective Labs 05/18/24 13:30 Assessment & Plan Assessment and Plan (1) delivery delivered: Status: Acute Assessment and plan: POD #1 s/p pLTCS Clinically stable, recovering well Pain management as needed support s/p consult Encourage ambulation, flatus/BM prior to discharge Bleeding minimal for course, monitor Likely discharge home later today if pain continues to be well controlled Plan day: 1 plan OB: routine postop care Time-Based Coding :: 20 minutes spent with patient and on the chart (including review of chart, obtaining history, exam, reviewing outside data, placing orders, documenting exam and treatment plan, and counseling patient) on 05/20/2024.
--- NOTE | 2024-05-20 17:36 | P.DS_ITS ---
Discharge Providers Provider Date of admission: 05/18/24 12:46 Discharge Date: 05/20/24 Primary care physician: Lena Pollock MD Consults: 05/19/24 13:13 Consult to Side Laster Staple Routine Comment: Discharge provider: Lloyd Gorman MD Summary Hospital Course Date Patient Seen: 05/20/24 Time Patient Seen: 17:36 Diagnoses: #term labor #2nd stage arrest of labor # delivery delivered # mother Hospital Course: Admitted for normal labor on 05/21/24. Progressed adequately with AROM and pitocin augmentation to complete dilation over the course of 18 hours. She experienced second stage arrest of labor with maternal exhaustion and subsequently had had an uncomplicated pLTCS of a live female . Her course was uncomplicated. At discharge patient is ambulating well, tolerating normal diet, breast-feeding without difficulty, and pain is adequately controlled with acetaminophen and ibuprofen. She reports a history of significant nausea with opiate medication and therefore declines use during her recovery process. 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 Peripartum Data Infant Delivery Method: Section complications: none 1: Gender: Female Disposition of : home Discharge Diagnosis (1) delivery delivered: Status: Acute (2) Mother currently breast-feeding: Status: Acute Status at Discharge Cognitive/behavioral status at discharge: oriented Functional status at discharge: independent ambulation Overall status at discharge: patient is progressing back to baseline Time Spent with Patient Time attestation: Total time spent providing and/or coordinating discharge services: 30 minutes Objective Labs 05/18/24 13:30 Exam Vital Signs (past 8 hours): Oxygen Delivery Method Room Air Narrative Exam Narrative: General: Well-appearing, well-nourished, no distress HEENT: Moist mucous membranes, no pallor CV: Regular rate and rhythm, no murmur auscultated Resp: CTAB, comfortable work of breathing Abdomen: Soft, bowel sounds present, fundus firm below umbilicus with appropriate tenderness, incision c/d/i Extremities: No edema, no calf tenderness or evidence of DVT Discharge Plan Discharge Plan Patient Disposition: Home Discharge orders & Medications Prescriptions: New acetaminophen 325 mg Tablet 650 mg PO Q6H Qty: 90 1RF docusate sodium 100 mg Capsule 100 mg PO DAILY Qty: 30 0RF ibuprofen 600 mg Tablet 600 mg PO Q6H Qty: 90 1RF Purelan Cream 1 applic topical PRN PRN (Reason: Skin protectant) Qty: 7 6RF Continued pyridoxine (vitamin B6) 50 mg tablet 25 mg PO TID Qty: 90 2RF Disabled Parking See Rx Instructions .ROUTE .COMPLEX Qty: 365 0RF Rx Instructions: I find this patient to be medically disabled and qualified for Disabled Parking as indicated and signed on the accompanying Disabled Parking Application for Individuals levothyroxine 112 mcg tablet 112 mcg PO DAILY vit-ferrous sulfat-FA 27 mg iron- 0.8 mg tablet See Rx Instructions .ROUTE .COMPLEX Rx Instructions: Take as directed omega 5-joh-qmv-fish oil [Fish Oil] 60-90-500 mg capsule 1 cap PO DAILY Follow up/Referrals: Lloyd Gorman MD [Physician] - (1 week Incision check w/ Dr. Gorman: May.27 @ 1:30pm. Please schedule your 6 week appt after your incision check appt.) Diet/Activity/Treatments Diet: Regular Activity: As tolerated Skin/Wound/Dressing Care Report to your healthcare provider any signs of infection, such as:: chills, fever, night sweats, increased pain and unusual redness Visit Report/Discharge Packet Instructions: DI for Stand Alone Forms: Discharge: Care, Patient Portal/API, Stroke Signs & Symptoms Discharge Data Primary Care Provider: Lena Pollock Discharges patient from system. Discharge Date/Time: 05/20/24 18:30
== END 2024-05-20 18:30 | disposition home or self-care (01) | DRG 787 ==
PROVIDERS: Admitting Provider Family Medicine; PCP Student in an Organized Health Care Education/Training Program; Referring Provider Family Medicine; Visit Provider Family Medicine
PROC: 10D00Z1 Extraction of Products of Conception, Low, Open Approach (ICD-10-PCS; CPT 59514; principal; 2024-05-19 10:00)
DX: O62.1 Secondary uterine inertia (principal); O47.1 False labor at or after 37 completed weeks of gestation; Z3A.40 40 weeks gestation of pregnancy; Z37.0 Single live birth; O75.81 Maternal exhaustion complicating labor and delivery; O76 Abnormality in fetal heart rate and rhythm complicating labor and delivery
CPT/HCPCS: 36415; 59025; 59050; 59510; 59514; 76815; 85025; 86850; 86900; 86901; G0378; G0379; J0690; J1100; J1885; J2274; J2405; J2590; J2765

== ENCOUNTER → 2024-07-09 12:48 | Outpatient (CLI) | payer OTHER, SELFPAY ==
[2024-07-09 14:54] LABS: Free T4, Direct Thyroxine 1.29 ng/dL (0.78-2.19)
== END ==
PROVIDERS: PCP Student in an Organized Health Care Education/Training Program; Referring Provider Family Medicine; Visit Provider Family Medicine
DX: E03.8 Other specified hypothyroidism (principal)
CPT/HCPCS: 36415; 84439; 84443